=== PATIENT | male | born 1940 | race Caucasian/White ===

== ENCOUNTER 2024-02-06 15:21 | Inpatient (IN) | payer OTHER ==
[2024-02-06 16:35] LABS: EPI CELLS 8 /uL (0-25.1); HYALINE CASTS 1 /uL (0-3.1); PH,URINE 6.5 (5.0-8.0); URINE APPEARANCE CLOUDY; URINE BACTERIA 212 /uL (0-1359); URINE BILIRUBIN NEGATIVE (NEGATIVE); URINE COLOR YELLOW; URINE GLUCOSE (UA) 2+ (NEGATIVE); URINE KETONE NEGATIVE (NEGATIVE); URINE LEUK ESTERASE 1+ (NEGATIVE); URINE NITRITE NEGATIVE (NEGATIVE); URINE PROTEIN 3+ (NEGATIVE); URINE RBC 759 /uL (0-23.9); URINE UROBILINOGEN 0.2 mg/dL (0.2-1.0); URINE WBC 3271 /uL (0-25.8)
[2024-02-06 16:38] LABS: BASO % 0.5 % (0-2.0); EOS % 1.3 % (0-4.5); HEMOGLOBIN 11.9 GM/dL (11.7-16.9); LYMPH % 23.7 % (8-40); MCH 27.8 pg (25.7-33.7); MCHC 34.1 g/dl (32.0-35.9); MEAN CELL VOLUME 81.6 fl (80-96); MEAN PLT VOLUME 7.5 fl (7.5-11.1); NEUT % 62.5 % (42.8-82.8); PLATELET COUNT 185 10^3/uL (134-434); RBC 4.29 M/mm3 (4.00-5.60); RDW 14.5 % (11.9-15.9)
[2024-02-06 16:55] LABS: INR 0.95 (0.83-1.09); PROTHROMBIN TIME (PATIENT) 10.9 SEC (9.7-13.0)
[2024-02-06 16:58] LABS: ACTIVATED PTT 29.2 SECONDS (25.2-36.5)
[2024-02-06 17:00] LABS: POTASSIUM 4.3 mmol/L (3.5-5.1)
[2024-02-06 17:02] LABS: CALCIUM 8.9 mg/dL (8.5-10.1)
[2024-02-06 17:03] LABS: ALBUMIN 3.3 g/dl (3.4-5.0)
[2024-02-06 17:06] LABS: CREATININE 1.1 mg/dL (0.55-1.3)
[2024-02-06 17:08] LABS: BILIRUBIN,TOTAL 1.5 mg/dL (0.2-1); TOT PROT 7.6 g/dl (6.4-8.2)
[2024-02-06] MEDS: IMIPENEM/CILASTATIN SODIUM 500 MG in SODIUM CHLORIDE 100 ML IVPB SCH (17:10)
[2024-02-06 18:05] LABS: YEAST NONE SEEN (NEGATIVE)
[2024-02-07] MEDS: TAMSULOSIN HCL 0.4 MG CAP PO ONE (01:38)
[2024-02-07] MEDS: LOSARTAN POTASSIUM 50 MG TABLET PO ONE ×2 (01:38→07:59)
[2024-02-07 02:54] VITALS: BMI 23.2
[2024-02-07] MEDS: IMIPENEM/CILASTATIN SODIUM 500 MG in SODIUM CHLORIDE 100 ML IVPB SCH ×2 (03:47→09:09)
[2024-02-07] MEDS: INSULIN (LEVEMIR) 100 UNITS/ML UNITS SQ SCH ×2 (07:07→21:57)
[2024-02-07 09:57] LABS: BASO % 0.4 % (0-2.0); EOS % 2.2 % (0-4.5); HEMATOCRIT 34.4 % (35.4-49); HEMOGLOBIN 11.9 GM/dL (11.7-16.9); LYMPH % 27.7 % (8-40); MCHC 34.5 g/dl (32.0-35.9); MEAN CELL VOLUME 81.3 fl (80-96); MEAN PLT VOLUME 7.9 fl (7.5-11.1); MONO % 14.9 % (3.8-10.2); NEUT % 54.8 % (42.8-82.8); PLATELET COUNT 172 10^3/uL (134-434); RBC 4.24 M/mm3 (4.00-5.60); RDW 14.6 % (11.9-15.9); WHITE BLOOD COUNT 6.6 K/mm3 (4.0-10.0)
[2024-02-07 10:15] LABS: POTASSIUM 4.4 mmol/L (3.5-5.1)
[2024-02-07] MEDS: TAMSULOSIN HCL 0.4 MG CAP PO SCH (10:15)
[2024-02-07] MEDS: LOSARTAN POTASSIUM 50 MG TABLET PO SCH (10:16)
[2024-02-07] MEDS: MEROPENEM 1 GM in DEXTROSE 5%-WATER 100 ML IVPB ONE (10:16)
[2024-02-07 10:22] LABS: ALBUMIN 2.9 g/dl (3.4-5.0)
[2024-02-07 10:23] LABS: BLOOD UREA NITROGEN 15.4 mg/dL (7-18); MAGNESIUM 1.9 mg/dL (1.8-2.4)
[2024-02-07 10:24] LABS: BILIRUBIN,TOTAL 1.9 mg/dL (0.2-1); TOT PROT 6.8 g/dl (6.4-8.2)
[2024-02-07 10:26] LABS: PHOSPHOROUS 3.7 mg/dL (2.5-4.9)
[2024-02-07 10:29] LABS: CREATININE 1.1 mg/dL (0.55-1.3)
[2024-02-07] MEDS: MEROPENEM 1 GM in DEXTROSE 5%-WATER 100 ML IVPB SCH (11:08)
[2024-02-07] MEDS: INSULIN ASPART SLIDING SCALE (NOVOLOG) 1 VIAL SQ SCH ×2 (11:32→15:59)
[2024-02-07] MEDS: INSULIN (NOVOLOG) ASPART 100 UNITS/ML 10ML VIAL SQ SCH (17:13)
[2024-02-08 08:50] LABS: HEMATOCRIT 37.3 % (35.4-49); MCH 28.3 pg (25.7-33.7); MCHC 34.8 g/dl (32.0-35.9); MEAN CELL VOLUME 81.4 fl (80-96); MEAN PLT VOLUME 8.3 fl (7.5-11.1); PLATELET COUNT 212 10^3/uL (134-434); RBC 4.58 M/mm3 (4.00-5.60); RDW 14.6 % (11.9-15.9); WHITE BLOOD COUNT 7.8 K/mm3 (4.0-10.0)
[2024-02-08] MEDS: ENOXAPARIN NA (PORCINE) 40 MG/0.4 ML DISP.SYRIN SQ SCH (09:00)
[2024-02-08 09:35] LABS: ALBUMIN 3.4 g/dl (3.4-5.0); CALCIUM 9.3 mg/dL (8.5-10.1)
[2024-02-08 09:36] LABS: BLOOD UREA NITROGEN 18.9 mg/dL (7-18)
[2024-02-08 09:38] LABS: CREATININE 1.2 mg/dL (0.55-1.3); PHOSPHOROUS 3.6 mg/dL (2.5-4.9)
[2024-02-08 09:40] LABS: BILIRUBIN,TOTAL 2.1 mg/dL (0.2-1); TOT PROT 7.8 g/dl (6.4-8.2)
[2024-02-08] MEDS: DOCUSATE SODIUM 100 MG CAPSULE (FP) PO SCH (13:45)
[2024-02-08] MEDS: POLYETHYLENE GLYCOL (HEALTHYLAX) 3350 17 GM PACKET PO SCH (13:45)
[2024-02-08] MEDS: INSULIN (NOVOLOG) ASPART 100 UNITS/ML 10ML VIAL SQ SCH (16:37)
[2024-02-09 08:48] LABS: BASO % 0.7 % (0-2.0); EOS % 2.5 % (0-4.5); HEMATOCRIT 39.4 % (35.4-49); HEMOGLOBIN 13.4 GM/dL (11.7-16.9); LYMPH % 35.7 % (8-40); MCH 28.1 pg (25.7-33.7); MCHC 34.1 g/dl (32.0-35.9); MEAN CELL VOLUME 82.5 fl (80-96); MEAN PLT VOLUME 8.2 fl (7.5-11.1); MONO % 14.9 % (3.8-10.2); NEUT % 46.2 % (42.8-82.8); PLATELET COUNT 233 10^3/uL (134-434); RBC 4.77 M/mm3 (4.00-5.60); RDW 14.6 % (11.9-15.9); WHITE BLOOD COUNT 7.5 K/mm3 (4.0-10.0)
[2024-02-09 09:21] LABS: BLOOD UREA NITROGEN 23.8 mg/dL (7-18); CALCIUM 9.5 mg/dL (8.5-10.1)
[2024-02-09 09:25] LABS: CREATININE 1.2 mg/dL (0.55-1.3)
[2024-02-09] MEDS: INSULIN (LEVEMIR) 100 UNITS/ML UNITS SQ ONE (09:28)
[2024-02-09] MEDS: INSULIN (NOVOLOG) ASPART 100 UNITS/ML 10ML VIAL SQ SCH (11:36)
[2024-02-09] MEDS: INSULIN (LEVEMIR) 100 UNITS/ML UNITS SQ SCH (22:29)
[2024-02-10] MEDS ORDERED: ERTAPENEM SODIUM 1 GM in SODIUM CHLORIDE 50 ML IVPB ONE (05:00)
[2024-02-10] MEDS: INSULIN (LEVEMIR) 100 UNITS/ML UNITS SQ SCH (07:07)
[2024-02-10 10:21] LABS: HEMATOCRIT 39.4 % (35.4-49); HEMOGLOBIN 13.2 GM/dL (11.7-16.9); MCH 27.9 pg (25.7-33.7); MCHC 33.5 g/dl (32.0-35.9); MEAN CELL VOLUME 83.5 fl (80-96); MEAN PLT VOLUME 8.6 fl (7.5-11.1); PLATELET COUNT 241 10^3/uL (134-434); RBC 4.72 M/mm3 (4.00-5.60); RDW 14.8 % (11.9-15.9); WHITE BLOOD COUNT 7.8 K/mm3 (4.0-10.0)
[2024-02-10 10:33] LABS: POTASSIUM 4.5 mmol/L (3.5-5.1)
[2024-02-10 10:35] LABS: CALCIUM 9.4 mg/dL (8.5-10.1)
[2024-02-10 10:36] LABS: ALBUMIN 3.6 g/dl (3.4-5.0)
[2024-02-10 10:39] LABS: CREATININE 1.2 mg/dL (0.55-1.3)
[2024-02-10 10:41] LABS: BILIRUBIN,TOTAL 1.6 mg/dL (0.2-1); TOT PROT 8.2 g/dl (6.4-8.2)
[2024-02-10 18:45] VITALS: RESP 18
[2024-02-10] MEDS: ERTAPENEM SODIUM 1 GM in SODIUM CHLORIDE 50 ML IVPB ONE (18:53)
[2024-02-11 09:20] VITALS: BP 111/67; PULSE 100; TEMP 98.1
[2024-02-11] MEDS: ERTAPENEM SODIUM 1 GM in SODIUM CHLORIDE 50 ML IVPB ONE (10:34)
== END 2024-02-11 15:16 | disposition home or self-care (01) | DRG 690 ==
LOC: JER 15:21 → JERBED 18:33 → J6S 02-07 00:13
PROVIDERS: ADMIT Internal Medicine; ATTEND Internal Medicine
PROC: 02HV33Z Insertion of Infusion Device into Superior Vena Cava, Percutaneous Approach (ICD-10-PCS; principal; 2024-02-10)
PROC: B518ZZA Fluoroscopy of Superior Vena Cava, Guidance (ICD-10-PCS; 2024-02-10)
DX: N39.0 Urinary tract infection, site not specified (principal); B96.20 Unspecified Escherichia coli [E. coli] as the cause of diseases classified elsewhere; N40.0 Benign prostatic hyperplasia without lower urinary tract symptoms; I10 Essential (primary) hypertension; E78.00 Pure hypercholesterolemia, unspecified; I44.0 Atrioventricular block, first degree; I45.10 Unspecified right bundle-branch block; E80.6 Other disorders of bilirubin metabolism; E11.65 Type 2 diabetes mellitus with hyperglycemia
CPT/HCPCS: 36415; 36569; 74176-TC; 80048; 80053; 81003; 82962; 83036; 83735; 84100; 85025; 85027; 85610; 85730; 86850; 86900; 86901; 87086; 87186; 93005; 93010; 97116-GP; 97161-GP; 99285-25